=== PATIENT | female | born 2000 | race Caucasian/White ===

== ENCOUNTER 2020-12-03 12:00 | Inpatient (IN) ==
[2020-12-03] MEDS ORDERED: Naloxone 0.4 MG/ML INJ IVP PRN (12:53)
[2020-12-03] MEDS ORDERED: CeFAZolin 2,000 MG/120 ML BAG IVPB ONE (12:53)
[2020-12-03] MEDS ORDERED: Famotidine 20 MG/2 ML VIAL IVP PRN (12:53)
[2020-12-03] MEDS ORDERED: Metoclopramide 10 MG/2 ML VIAL IVP PRN (12:53)
[2020-12-03] MEDS ORDERED: Ringers Solution, Lactated 1,000 ML ONE ×2 (14:20→19:19)
[2020-12-03 14:45] LABS: Basophils % 0.4 %; Eosinophils % 0.1 %; Hematocrit 32.3 % (35.3-44.9); Hemoglobin 9.9 g/dL (11.5-15.4); Immature Granulocytes % 0.5 % (0-4); Lymphocytes # 1.6 K/mcL (0.6-4.6); Mean Corpuscular HGB Conc 30.7 g/dL (31.6-35.5); Mean Corpuscular Volume 78.2 fL (83.0-100.0); Mean Platelet Volume 12.8 fL (9.4-12.4); Monocytes # 0.5 K/mcL (0.0-1.3); Neutrophils # 5.4 K/mcL (1.6-8.9); Platelet Count 165 K/mcL (140-400); Red Blood Count 4.13 M/mcL (3.82-4.97); Red Cell Distribution Width 14.6 % (11.5-14.5); White Blood Count 7.5 K/mcL (4.3-11.1)
[2020-12-03 15:35] LABS: Amphetamine Screen,Urine Negative ng/mL (Cutoff=1000); Barbiturate Screen,Urine Negative ng/mL (Cutoff=200); Benzodiazepines Screen,Urine Negative ng/mL (Cutoff=200); Cannabinoid Screen,Urine Negative ng/mL (Cutoff = 50); Cocaine Screen,Urine Negative ng/mL (Cutoff= 300); Opiate Screen,Urine Negative ng/mL (Cutoff=300); Phencyclidine Screen,Urine Negative ng/mL (Cutoff=25)
[2020-12-03 15:37] LABS: Influenza A PCR Negative (Negative); Influenza B PCR Negative (Negative); Resp. Syncytial Virus PCR Negative (Negative)
[2020-12-03 15:39] LABS: SARS-CoV-2 by PCR (In House) Negative (Negative)
[2020-12-03] MEDS ORDERED: *HR* Morphine Sulfate/PF 10 MG/10 ML AMPUL ONE (18:47)
[2020-12-03] MEDS ORDERED: EPHEDrine 50 MG/ML VIAL ONE (18:47)
[2020-12-03] MEDS ORDERED: *HR* FentaNYL (PF) 100 MCG/2 ML VIAL ONE (18:48)
[2020-12-03] MEDS ORDERED: Ketorolac 30 MG/ML VIAL ONE (18:50)
[2020-12-03] MEDS ORDERED: Acetaminophen IV 1,000 MG/100 ML BAG IVPB ONE (18:50)
[2020-12-03] MEDS ORDERED: Ondansetron 4 MG/2 ML VIAL ONE (18:50)
[2020-12-03] MEDS ORDERED: ceFAZolin 2,000 MG in 0.9 % Sodium Chloride 100 ML IVPB ONE (20:41)
[2020-12-03] MEDS ORDERED: Oxytocin 20 units/ LR 1000 mL 20 UNIT/1,000 ML BAG IVC ONE (21:52)
[2020-12-04] MEDS ORDERED: Oxytocin 20 units/ LR 1000 mL 20 UNIT/1,000 ML BAG IVC SCH ×2 (00:51)
[2020-12-04] MEDS ORDERED: Metoclopramide 10 MG/2 ML VIAL IVP PRN (00:51)
[2020-12-04] MEDS ORDERED: Simethicone 80 MG TAB.CHEW PO PRN (00:51)
[2020-12-04] MEDS ORDERED: Ondansetron 4 MG/2 ML VIAL IVP PRN (00:51)
[2020-12-04] MEDS: Ibuprofen 600 MG TABLET PO SCH ×4 (01:13→19:57)
[2020-12-04 03:11] VITALS: O2SAT 98
[2020-12-04] MEDS: Acetaminophen 325 MG TABLET PO SCH ×4 (03:52→19:56)
[2020-12-04] MEDS: Prenatal Vit/FA 1 EACH TABLET PO SCH (09:29)
[2020-12-04] MEDS ORDERED: *HR* OxyCODONE Immed Rel 5 MG TABLET PO PRN (19:52)
[2020-12-04] MEDS ORDERED: Lanolin 7 G OINT...G. TP PRN (19:55)
[2020-12-05] MEDS: Ibuprofen 600 MG TABLET PO SCH ×2 (03:06→10:03)
[2020-12-05] MEDS: Acetaminophen 325 MG TABLET PO SCH ×2 (03:06→10:03)
[2020-12-05 07:49] VITALS: BP 107/69; TEMP 98.5
[2020-12-05] MEDS: Prenatal Vit/FA 1 EACH TABLET PO SCH (10:03)
[2020-12-05 10:27] VITALS: PULSE 84
== END 2020-12-05 15:30 | disposition home or self-care (01) | DRG 540 ==
LOC: 1NENULAB 12:22 → 1NENUOBS 12-04 00:51
PROVIDERS: ADMIT Obstetrics & Gynecology; ATTEND Obstetrics & Gynecology